=== PATIENT | male | born 2000 | race African-American/Black ===

== ENCOUNTER 2022-07-22 14:34 | Emergency (ER) | payer BC, SELFPAY ==
--- NOTE | ~2022-07-22 | XR_ITS ---
EXAMINATION: XR elbow RT min 3V DATE: 07/22/2022 15:09 INDICATION: Right elbow injury. TECHNIQUE: 4 views of right elbow were obtained. COMPARISON: None. FINDINGS: Bone alignment is normal. There is a fracture of the tip of the coronoid process. Joint spa french are normal. There is an elbow joint effusion. IMPRESSION: 1. Fracture of the tip of the coronoid process of proximal ulna. 2. Elbow joint effusion. Reviewed, dictated and finalized at location A.
--- NOTE | ~2022-07-22 | CT_ITS ---
EXAMINATION: CT elbow RT wo con DATE: 07/22/2022 16:14 INDICATION: Right elbow injury. TECHNIQUE: Computed tomography (CT) of the right elbow was performed without intravenous contrast. Au tomated exposure control and iterative reconstruction technique were employed. The dose-length produc t was 492.01 mGy-cm. COMPARISON: Right elbow radiographs 07/22/2022 FINDINGS: Bone alignment is normal. There is a comminuted fracture of posterior medial aspect of troc hlea of proximal humerus. There is a nondisplaced fracture component. A 5 x 4 x 1 mm loose body in th e posterior elbow joint is likely a displaced fracture fragment. There is a nondisplaced fracture of the tip of coronoid process of proximal ulna. There is a chip avulsion fracture of lateral humeral ep icondyle. No arthritis. There is an elbow joint effusion. IMPRESSION: 1. Comminuted fracture of posterior medial aspect of trochlea of proximal humerus involving the artic ular surface. 2. Elbow joint effusion with loose body in the posterior elbow joint that is likely a displaced fract ure fragment from the trochlea fracture. 3. Nondisplaced fracture of tip of coronoid process of proximal ulna. 4. Chip avulsion fracture of lateral humeral epicondyle. Reviewed, dictated and finalized at location A. IMPRESSION: 1. Comminuted fracture of posterior medial aspect of trochlea of proximal humer us involving the articular surface. 2. Elbow joint effusion with loose body in the posterior elbow joint that is li meg a displaced fracture fragment from the trochlea fracture. 3. Nondisplaced fracture of tip of coronoid process of proximal ulna. 4. Chip avulsion fracture of lateral humeral epicondyle.
[2022-07-22 14:38] VITALS: BP 127/65; PULSE 85; RESP 18; TEMP 36.7; O2SAT 99
--- NOTE | 2022-07-22 14:55 | ED.UPPEXIN ---
HPI - Extremity Injury (Upper) General Chief Complaint: Extremity Injury, Upper Stated Complaint: arm injury Time Seen by Provider: 07/22/22 14:40 History of Present Illness HPI narrative: 22-year-old male presents to the emergency room for evaluation of right forearm and elbow pain. Patient states a week ago he was walking backwards to pick an object up when he fell landing on an outstretched arm, hyperextending his elbow. States injury occurred 1 week ago. Patient has full range of motion of his elbow and wrist however, has noted some increased weakness and forearm pain and swelling since the injury. Reports taking ibuprofen on a regular basis and icing down the injured area. Related Data Allergies Allergy/AdvReac Type Severity Reaction Status Date / Time No Known Allergies Allergy Verified 07/22/22 14:47 Review of Systems Review of Systems: CONSTITUTIONAL: Denies fever, chills, or sweats. EYES: Denies visual changes, redness, or discharge. ENT: Denies rhinorrhea, congestion, sore throat, or otalgia. CARDIOVASCULAR: Denies chest pain, palpitations, or edema. RESPIRATORY: Denies cough or dyspnea. GASTROINTESTINAL: Denies abdominal pain, nausea, vomiting, or diarrhea. GENITOURINARY: Denies dysuria or hematuria. SKIN: Denies rash or itching. MUSCULOSKELETAL: Reports right elbow and right forearm pain NEUROLOGIC: Denies headache, numbness, dizziness, or weakness. PSYCHIATRIC: Denies anxiety or depression. Exam Narrative: GENERAL: Well-appearing, well-nourished, no physical limitations, and in no acute distress. HEAD: Normocephalic, atraumatic. EYES: Conjunctivae normal, PERRLA and EOMI. CHEST: Clear to auscultation. No respiratory distress. No wheezes rales or rhonchi. HEART: Regular rate and rhythm. No murmur heard. Normal peripheral pulses. EXTREMITIES: RUE: No bony tenderness. FROM of elbow and wrist joints. Pain with elbow extension. No noted STS. neurovascular is intact distally SKIN: Warm, dry, no rash. No noted wounds NEURO: No focal deficits. Alert and oriented x3. MAEW. CN's II-XI intact bilaterally, normal gait PSYCH: Cooperative. Normal mood and affect. Course Vital Signs Vital signs: Vital Signs Temperature 36.7 C 07/22/22 14:38 Pulse Rate 85 07/22/22 14:38 Respiratory Rate 18 07/22/22 14:38 Blood Pressure 127/65 07/22/22 14:38 Pulse Oximetry 99 07/22/22 14:38 Oxygen Delivery Room Air 07/22/22 14:38 Temperature 36.7 C 07/22/22 14:38 Pulse Rate 85 07/22/22 14:38 Respiratory Rate 18 07/22/22 14:38 Blood Pressure 127/65 07/22/22 14:38 Pulse Oximetry 99 07/22/22 14:38 Oxygen Delivery Room Air 07/22/22 14:38 MDM - Extremity Injury (Upper) MDM Narrative Medical decision making narrative: 22-year-old male presented emergency room for evaluation of right elbow pain. Patient states that he suffered a hyperextension injury to his right elbow. Noticed significant swelling just distal to the elbow and pain with extension. Plain films show fracture of the coronoid process. Discussed findings with Dr. Qiu, he is requesting a CT scan for further evaluation and to have patient placed in a sling. Will follow patient in his office later this week. Discharge Plan Discharge Clinical Impression: Closed fracture of right elbow Patient Disposition: Home, Self-Care Condition: Stable Instructions: Antibiotic Form, Elbow Fracture (DC) Additional Instructions: Keep arm in sling until you follow-up with orthopedics. Recommend following up with Dr. Fortune, orthopedic surgeon, later this week. Recommend Tylenol and ibuprofen as needed for discomfort. Keep your arm in a sling until cleared by orthopedics. Follow-up/Referrals: PHYSICIAN NOT ON STAFF,NONSTAFF [Primary Care Provider] - John Sharif MD [Physician] - Stand Alone Forms: Work/School Release IP Time of Disposition: 16:14
== END 2022-07-22 16:33 | disposition home or self-care (01) ==
PROVIDERS: Emergency Provider Nurse Practitioner Family
DX: S52.044A Nondisplaced fracture of coronoid process of right ulna, initial encounter for closed fracture (principal); S42.461A Displaced fracture of medial condyle of right humerus, initial encounter for closed fracture; S42.431A Displaced fracture (avulsion) of lateral epicondyle of right humerus, initial encounter for closed fracture; W18.39XA Other fall on same level, initial encounter
CPT/HCPCS: 73080; 73200; 99284; A4565